=== PATIENT | female | born 1995 | race Caucasian/White ===

== ENCOUNTER 2023-04-25 20:43 | Emergency (ER) | payer MEDICAID ==
[~2023-04-25] VITALS: Ht 162.6 cm; Wt 61.2 kg
[2023-04-25 20:55] VITALS: BP_SYST 119; PULSE 74; RESP 17; TEMP 98.4; O2SAT 99
[2023-04-25 22:56] LABS: BILIRUBIN,URINE NEGATIVE (NEGATIVE); BLOOD, URINE NEGATIVE (NEGATIVE); CLARITY/URINE CLEAR (CLEAR); COLOR,URINE YELLOW (YELLOW); GLUCOSE,URINE NEGATIVE (NEGATIVE); KETONES,URINE NEGATIVE (NEGATIVE); LEUKOCYTE ESTERASE ,URINE TRACE (NEGATIVE); NITRITE, URINE NEGATIVE (NEGATIVE); PH,URINE 6.5 (5.0-8.0); PROTEIN URINE NEGATIVE (NEGATIVE); UROBILINOGEN,URINE 0.2 (0.2-1.0)
[2023-04-25 23:02] LABS: BACTERIA,URINE RARE /HPF (None Seen); MUCUS,URINE None Seen /LPF (None Seen); RBC,URINE NONE SEEN /HPF (0-3); WBC,URINE 0-3 /HPF (0-3)
[2023-04-26] MEDS ORDERED: DOXY100C5 PO (00:08)
[2023-04-26] MEDS ORDERED: DIF100 PO (00:09)
[2023-04-26] MEDS ORDERED: cefTRIAXone 500 MG in LIDOCAINE 1%, 20 ML MDV 1 ML IM ONE (00:15)
[2023-04-26 00:36] VITALS: BP_SYST 119; PULSE 74; RESP 17; TEMP 98.4; O2SAT 99
== END 2023-04-26 00:36 | disposition home or self-care (01) ==
LOC: SED 20:43
DX: N34.2 Other urethritis (principal); N89.8 Other specified noninflammatory disorders of vagina; R10.30 Lower abdominal pain, unspecified; Z79.899 Other long term (current) drug therapy
CPT/HCPCS: 99283; 81001; 36415; 81025; 87491; 81000; 96372; 81015; J0696